=== PATIENT | male | born 1955 | race Hispanic/Latino ===

== ENCOUNTER 2017-01-09 16:58 | Emergency (ER) | payer MEDICAID, MEDICARE ==
[2017-01-09] MEDS ORDERED: Ketorolac Tromethamine 30 MG/ML VIAL ONE (18:16)
== END 2017-01-09 18:36 | disposition home or self-care (01) ==
LOC: NAV ERS 16:58
DX: M54.5 Low back pain (principal); I25.2 Old myocardial infarction; I10 Essential (primary) hypertension
CPT/HCPCS: 99283; J1885